=== PATIENT | female | born 2000 | race Caucasian/White ===

== ENCOUNTER 2022-02-11 03:46 | Emergency (ER) | payer BC ==
[~2022-02-11] VITALS: Ht 154.9 cm; Wt 48.1 kg
[2022-02-11 04:09] VITALS: BP_SYST 152
--- NOTE | 2022-02-11 04:10 | NUR ---
Patient triaged and placed in ED rm 8. VSS and patient appears in no acute distress at this time. Accompanied by mother. MD Johnson notified of need for MSE. Report given to RICHARDSON Briones.
--- NOTE | 2022-02-11 04:17 | NUR ---
JULIA Johnson at bedside.
--- NOTE | 2022-02-11 04:18 | NUR ---
Patient presents to ED from home with c/o burning sensation from epigastric region to upper chest area upon inspriation x1day. Patient reports pain 0/10 at this time. Patient reports testing Positive for Covid-19 on Wednesday (x3days ago). Patient denies SOB, chest pain/tightness, abd pain, weakness, N/V/D, dizziness, or pain at this time. Patient A/Ox4, VSS, ambulatory, resp even and unlabored. Patient's mother at bedside. Nad noted at this time.
[2022-02-11] MEDS ORDERED: MAG HYDROX/AL HYDROX/SIMETH 30 ML, DICYCLOMINE HCL 20 MG, LIDOCAINE VISCOUS 2% 15ML (PO... PO ONE ×3 (04:30)
[2022-02-11] MEDS ORDERED: IBUP-2018 PO (04:44)
[2022-02-11] MEDS ORDERED: OMEP-268 PO (04:44)
--- NOTE | 2022-02-11 05:00 | NUR ---
Patient reports burning sensation in epigastric area has diminished since medication administration was given. Nad noted at this time.
[2022-02-11 05:04] VITALS: BP_SYST 152
--- NOTE | 2022-02-11 05:04 | NUR ---
Patient given written and verbal discharge instructions and verbalizes understanding. ER MD discussed with patient the results and treatment provided. Patient in stable condition. ID arm band removed. Rx of Ibuprofen and Omprazole given. Patient educated on pain management and to follow up with PMD. Pain Scale 0/10. Opportunity for questions provided and answered. Medication side effect fact sheet provided. Patient accompanied by mother and in stable condition upon discharge.
== END 2022-02-11 05:04 | disposition home or self-care (01) ==
LOC: SED 03:46
DX: R10.13 Epigastric pain (principal); R07.9 Chest pain, unspecified; R06.02 Shortness of breath; Z79.899 Other long term (current) drug therapy
CPT/HCPCS: 99283; 93005; J2001